=== PATIENT | female | born 1960 | race Caucasian/White ===

== ENCOUNTER 2021-09-27 14:28 | Inpatient (IN) | payer MEDICAID ==
[~2021-09-27] VITALS: Ht 167.6 cm; Wt 75.6 kg
[2021-09-27] MEDS ORDERED: RISP2TAB45 PO (17:01)
[2021-09-27] MEDS ORDERED: BENZ0.5T49 PO (17:01)
[2021-09-27] MEDS ORDERED: THYR30 PO (17:01)
[2021-09-27] MEDS ORDERED: LITH300C3 PO (17:01)
[2021-09-27] MEDS ORDERED: LOSA-381 PO (17:01)
[2021-09-27] MEDS ORDERED: AMLO-258 PO (17:01)
[2021-09-27] MEDS ORDERED: HALOPERIDOL 5 MG TABLET PO PRN (21:15)
[2021-09-27] MEDS ORDERED: ZOLPIDEM TARTRATE 10 MG TABLET PO PRN (21:15)
[2021-09-27] MEDS: LORazepam 2 MG TABLET PO PRN (21:41)
[2021-09-27 23:27] VITALS: BP 139/79
[2021-09-28 06:58] LABS: BASOPHILS % (AUTO) 0.6 % (0.0-2.0); EOSINOPHILS % (AUTO) 1.9 % (1.0-6.0); HEMATOCRIT 40.8 % (36-46); HEMOGLOBIN 14.1 g/dL (12.0-16.0); LYMPHOCYTES % (AUTO) 37.4 % (22.0-44.0); MEAN CORPUSCULAR HEMOGLOBIN 32.2 pg (26.0-34.0); MEAN CORPUSCULAR HGB CONC 34.6 G/dL (31.0-37.0); MEAN CORPUSCULAR VOLUME 93 fL (80-100); MONOCYTES # (AUTO) 0.5 K/uL (0.1-1.0); MONOCYTES % (AUTO) 9.8 % (2.0-9.0); NEUTROPHILS # (AUTO) 2.7 K/uL (1.8-7.7); NEUTROPHILS % (AUTO) 50.3 % (40.0-70.0); PLATELET COUNT (AUTO) 310 K/uL (150-450); RED BLOOD CELL COUNT(AUTO) 4.38 MIL/uL (4.00-5.20); RED CELL DISTRIBUTION WIDTH 12.7 % (11.5-14.5)
[2021-09-28 07:28] LABS: HEMOGLOBIN A1C 5.8 % (3.8-5.6)
[2021-09-28 07:33] LABS: ALANINE AMINOTRANSFERASE 30 U/L (12-78); ALBUMIN 3.6 g/dL (3.4-5.0); ALKALINE PHOSPHATASE 61 U/L (46-116); ANION GAP 5 mmol/L (8-16); ASPARTATE AMINOTRANSFERASE 17 U/L (15-37); BILIRUBIN,TOTAL 0.2 mg/dL (0.1-1.0); CALCIUM, TOTAL 9.5 mg/dL (8.8-10.5); CARBON DIOXIDE 30 mmol/L (22-29); CHLORIDE 106 mmol/L (98-107); CHOL/HDL RATIO 3.3 (3.9-5.7); CHOLESTEROL 203 mg/dL (131-200); GLUCOSE,RANDOM 102 mg/dL (70-110); HDL CHOLESTEROL 62 mg/dL (40-60); LDL CHOL (CALC.) 118 mg/dL (0-130); SODIUM SERUM 141 mmol/L (136-145); TOTAL PROTEIN, SERUM 6.6 g/dL (6.4-8.2); TRIGLYCERIDES 113 mg/dL (15-150); UREA NITROGEN, BLOOD 14 mg/dL (7-18)
[2021-09-28 07:34] LABS: GLOMERULAR FILTR. RATE CALC > 60 mL/min (>60)
[2021-09-28 08:03] VITALS: BP 102/63
[2021-09-28] MEDS: RisperiDONE 3 MG TABLET PO SCH (17:40)
[2021-09-28] MEDS: BENZTROPINE MESYLATE 1 MG TABLET PO SCH (17:40)
[2021-09-28 20:22] VITALS: BP 146/81
[2021-09-29] MEDS ORDERED: BACITRACIN 28 GM OINTMENT TP PRN (06:15)
[2021-09-29] MEDS ORDERED: CloNIDine HCL 0.1 MG TABLET PO PRN (06:15)
[2021-09-29] MEDS ORDERED: OMEPRAZOLE 20 MG CAPSULE PO PRN (06:15)
[2021-09-29] MEDS ORDERED: MAG HYDROX/AL HYDROX/SIMETH ES 30 ML SUSPENSION UDCUP PO PRN (06:15)
[2021-09-29] MEDS ORDERED: PETROLATUM,WHITE 28 GM JELLY TP PRN (06:15)
[2021-09-29] MEDS ORDERED: ALBUTEROL SULFATE HFA 90 MCG/PUFF 8 GM INHALER IH PRN (06:15)
[2021-09-29] MEDS ORDERED: MAGNESIUM HYDROXIDE SUSPENSION 30 ML UDCUP PO PRN (06:15)
[2021-09-29] MEDS ORDERED: ONDANSETRON HCL 4 MG TABLET PO PRN (06:15)
[2021-09-29] MEDS ORDERED: BENZOCAINE/MENTHOL LOZENGE PO PRN (06:15)
[2021-09-29] MEDS ORDERED: DOCUSATE SODIUM 100 MG CAPSULE PO PRN (06:15)
[2021-09-29] MEDS ORDERED: ACETAMINOPHEN 325 MG TABLET PO PRN (06:15)
[2021-09-29] MEDS ORDERED: LOPERAMIDE HCL 2 MG CAPSULE PO PRN (06:15)
[2021-09-29] MEDS: THYROID 30 MG TABLET PO SCH (06:21)
[2021-09-29 08:06] VITALS: BP 116/72
[2021-09-29] MEDS: BENZTROPINE MESYLATE 1 MG TABLET PO SCH ×2 (08:21→16:24)
[2021-09-29] MEDS: RisperiDONE 3 MG TABLET PO SCH ×2 (08:21→16:25)
[2021-09-29] MEDS: AmLODIPine BESYLATE 10 MG TABLET PO SCH (08:21)
[2021-09-29] MEDS: LOSARTAN POTASSIUM 25 MG TABLET PO SCH (08:23)
[2021-09-29] MEDS ORDERED: LOSARTAN POTASSIUM 25 MG TABLET PO SCH (09:00)
[2021-09-29] MEDS ORDERED: THYROID 30 MG TABLET PO SCH (09:00)
[2021-09-29 20:50] VITALS: BP 106/67
[2021-09-29] MEDS: LORazepam 2 MG TABLET PO PRN (21:12)
[2021-09-30] MEDS: THYROID 30 MG TABLET PO SCH (06:35)
[2021-09-30] MEDS: BENZTROPINE MESYLATE 1 MG TABLET PO SCH ×2 (08:29→17:00)
[2021-09-30] MEDS: RisperiDONE 3 MG TABLET PO SCH ×2 (08:30→17:00)
[2021-09-30] MEDS: AmLODIPine BESYLATE 10 MG TABLET PO SCH (08:30)
[2021-09-30] MEDS: LOSARTAN POTASSIUM 25 MG TABLET PO SCH (08:30)
[2021-09-30 09:00] VITALS: BP 120/80
[2021-09-30 20:18] VITALS: BP 112/77
[2021-09-30] MEDS: LORazepam 2 MG TABLET PO PRN (21:33)
[2021-10-01] MEDS: THYROID 30 MG TABLET PO SCH (06:20)
[2021-10-01] MEDS: LOSARTAN POTASSIUM 25 MG TABLET PO SCH (08:04)
[2021-10-01] MEDS: AmLODIPine BESYLATE 10 MG TABLET PO SCH (08:04)
[2021-10-01] MEDS: RisperiDONE 3 MG TABLET PO SCH ×2 (08:04→16:07)
[2021-10-01 08:12] VITALS: BP 118/68
[2021-10-01] MEDS: BENZTROPINE MESYLATE 1 MG TABLET PO SCH ×2 (08:26→16:07)
[2021-10-02 06:13] VITALS: BP 121/79
[2021-10-02] MEDS: THYROID 30 MG TABLET PO SCH (06:29)
[2021-10-02] MEDS: AmLODIPine BESYLATE 10 MG TABLET PO SCH (09:19)
[2021-10-02] MEDS: RisperiDONE 3 MG TABLET PO SCH ×2 (09:19→16:48)
[2021-10-02] MEDS: BENZTROPINE MESYLATE 1 MG TABLET PO SCH ×2 (09:19→16:48)
[2021-10-02] MEDS: LOSARTAN POTASSIUM 25 MG TABLET PO SCH (09:19)
[2021-10-02 09:54] VITALS: BP 123/75
[2021-10-02 20:17] VITALS: BP 111/62
[2021-10-03] MEDS: THYROID 30 MG TABLET PO SCH (06:24)
[2021-10-03 08:06] VITALS: BP 101/69
[2021-10-03] MEDS: AmLODIPine BESYLATE 10 MG TABLET PO SCH (08:29)
[2021-10-03] MEDS: LOSARTAN POTASSIUM 25 MG TABLET PO SCH (08:30)
[2021-10-03] MEDS: BENZTROPINE MESYLATE 1 MG TABLET PO SCH ×3 (08:31→18:00)
[2021-10-03] MEDS: RisperiDONE 3 MG TABLET PO SCH ×3 (08:31→18:00)
[2021-10-03 19:28] VITALS: BP 120/63
[2021-10-03] MEDS: IBUPROFEN 600 MG TABLET PO PRN (19:28)
[2021-10-03 21:08] VITALS: BP 115/63
[2021-10-03 22:41] LABS: GLUCOMETER DEV NAME(LOC) POC.BV
[2021-10-04] MEDS: THYROID 30 MG TABLET PO SCH (06:35)
[2021-10-04 08:01] VITALS: BP 107/69
[2021-10-04] MEDS: RisperiDONE 3 MG TABLET PO SCH ×2 (08:01→16:46)
[2021-10-04] MEDS: BENZTROPINE MESYLATE 1 MG TABLET PO SCH ×2 (08:01→16:45)
[2021-10-04] MEDS: LOSARTAN POTASSIUM 25 MG TABLET PO SCH (08:01)
[2021-10-04] MEDS: AmLODIPine BESYLATE 10 MG TABLET PO SCH (08:01)
[2021-10-04 18:41] VITALS: BP 131/76
[2021-10-04] MEDS: IBUPROFEN 600 MG TABLET PO PRN (18:41)
[2021-10-04 20:51] VITALS: BP 113/67
[2021-10-05] MEDS: THYROID 30 MG TABLET PO SCH (06:23)
[2021-10-05 08:21] VITALS: BP 129/74
[2021-10-05] MEDS: AmLODIPine BESYLATE 10 MG TABLET PO SCH (08:26)
[2021-10-05] MEDS: BENZTROPINE MESYLATE 1 MG TABLET PO SCH ×2 (08:26→16:15)
[2021-10-05] MEDS: LOSARTAN POTASSIUM 25 MG TABLET PO SCH (08:26)
[2021-10-05] MEDS: RisperiDONE 3 MG TABLET PO SCH ×2 (08:26→16:15)
[2021-10-05] MEDS: IBUPROFEN 600 MG TABLET PO PRN ×2 (13:32→22:02)
[2021-10-05 14:42] VITALS: BP 106/64
[2021-10-05 20:45] VITALS: BP 98/65
[2021-10-06] MEDS: THYROID 30 MG TABLET PO SCH (06:30)
[2021-10-06 09:15] VITALS: BP 110/62
[2021-10-06] MEDS: BENZTROPINE MESYLATE 1 MG TABLET PO SCH ×2 (09:20→16:06)
[2021-10-06] MEDS: RisperiDONE 3 MG TABLET PO SCH ×2 (09:20→16:06)
[2021-10-06] MEDS: AmLODIPine BESYLATE 10 MG TABLET PO SCH (09:21)
[2021-10-06] MEDS: LOSARTAN POTASSIUM 25 MG TABLET PO SCH (13:37)
[2021-10-06] MEDS: IBUPROFEN 600 MG TABLET PO PRN (20:29)
[2021-10-06 20:30] VITALS: BP 106/68
[2021-10-07] MEDS: THYROID 30 MG TABLET PO SCH (06:40)
[2021-10-07 08:45] VITALS: BP 110/71
[2021-10-07] MEDS: BENZTROPINE MESYLATE 1 MG TABLET PO SCH ×2 (08:48→16:38)
[2021-10-07] MEDS: AmLODIPine BESYLATE 10 MG TABLET PO SCH (08:48)
[2021-10-07] MEDS: LOSARTAN POTASSIUM 25 MG TABLET PO SCH (08:48)
[2021-10-07] MEDS: RisperiDONE 3 MG TABLET PO SCH ×2 (08:48→16:38)
[2021-10-07] MEDS: IBUPROFEN 600 MG TABLET PO PRN (18:04)
[2021-10-07 20:33] VITALS: BP 103/60
[2021-10-08] MEDS: THYROID 30 MG TABLET PO SCH (06:29)
[2021-10-08 08:35] VITALS: BP 119/72
[2021-10-08] MEDS: LOSARTAN POTASSIUM 25 MG TABLET PO SCH (09:23)
[2021-10-08] MEDS: RisperiDONE 3 MG TABLET PO SCH ×2 (09:23→17:17)
[2021-10-08] MEDS: AmLODIPine BESYLATE 10 MG TABLET PO SCH (09:23)
[2021-10-08] MEDS: BENZTROPINE MESYLATE 1 MG TABLET PO SCH ×2 (09:23→17:17)
[2021-10-08 20:36] VITALS: BP 101/57
[2021-10-09] MEDS: THYROID 30 MG TABLET PO SCH (06:37)
[2021-10-09 09:12] VITALS: BP 101/63
[2021-10-09] MEDS: BENZTROPINE MESYLATE 1 MG TABLET PO SCH (09:34)
[2021-10-09] MEDS: LOSARTAN POTASSIUM 25 MG TABLET PO SCH (09:34)
[2021-10-09] MEDS: RisperiDONE 3 MG TABLET PO SCH (09:34)
[2021-10-09] MEDS: AmLODIPine BESYLATE 10 MG TABLET PO SCH (09:34)
[2021-10-09] MEDS ORDERED: BENZ1TAB96 PO (10:53)
[2021-10-09] MEDS ORDERED: RISP3TAB35 PO (10:54)
[2021-10-09] MEDS ORDERED: LOSA-381 PO (21:24)
[2021-10-09] MEDS ORDERED: THYR30 PO (21:24)
[2021-10-09] MEDS ORDERED: AMLO-258 PO (21:24)
[2021-10-10] MEDS ORDERED: LOSARTAN POTASSIUM 25 MG TABLET PO SCH (09:00)
== END 2021-10-09 15:30 | disposition home or self-care (01) | DRG 750 ==
LOC: B3A 21:14 → B2S 10-05 16:18
PROVIDERS: ADMIT Psychiatry & Neurology Psychiatry; ATTEND Psychiatry & Neurology Psychiatry
DX: F20.9 Schizophrenia, unspecified (principal); E03.9 Hypothyroidism, unspecified; F31.9 Bipolar disorder, unspecified; F41.9 Anxiety disorder, unspecified; G47.00 Insomnia, unspecified; I10 Essential (primary) hypertension; F17.200 Nicotine dependence, unspecified, uncomplicated; Z20.822 Contact with and (suspected) exposure to COVID-19; Z79.899 Other long term (current) drug therapy; Z56.0 Unemployment, unspecified; Z59.00 Homelessness unspecified; Z71.6 Tobacco abuse counseling
CPT/HCPCS: 80053; 80061; 83036; 84439; 84443; 85025; J3535